=== PATIENT | female | born 1965 | race African-American/Black ===

== ENCOUNTER 2018-11-13 13:35 | Emergency (ER) | payer SELFPAY ==
[~2018-11-13] VITALS: Ht 160 cm; Wt 95.0 kg
[2018-11-13 14:32] VITALS: BP 134/72
== END 2018-11-13 14:57 | disposition home or self-care (01) ==
LOC: ER 13:35
DX: H57.89 Other specified disorders of eye and adnexa (principal); F17.200 Nicotine dependence, unspecified, uncomplicated; Z98.890 Other specified postprocedural states
CPT/HCPCS: 99283